=== PATIENT | female | born 1975 | race Asian ===

== ENCOUNTER 2020-12-07 16:32 | Inpatient (IN) | payer BC, SELFPAY ==
[~2020-12-07] VITALS: Ht 170 cm; Wt 76.7 kg
[2020-12-07] MEDS: LR 1,000 ML IV SCH ×2 (16:20→17:22)
[2020-12-07] MEDS ORDERED: NALBUPHINE HCL 10 MG/ML AMP IVP PRN (17:00)
[2020-12-07] MEDS ORDERED: OXYTOCIN/0.9 % SODIUM CHLORIDE 1,000 ML IV SCH ×2 (17:00→17:30)
[2020-12-07] MEDS ORDERED: TERBUTALINE SULFATE 1 MG/ML VIAL SUBCUT ONE (17:00)
[2020-12-07] MEDS ORDERED: ANUSOL 1 EA SUPP.RECT (PREPARATION H) RC PRN (17:30)
[2020-12-07] MEDS ORDERED: OXYTOCIN/0.9 % SODIUM CHLORIDE 1,000 ML IV ONE (17:30)
[2020-12-07] MEDS ORDERED: HYDROcodone/ACETAMIN 5-325 MG TAB (NORCO/ VICODIN) PO PRN (17:30)
[2020-12-07] MEDS ORDERED: NALOXONE HCL 0.4 MG/ML AMP (NARCAN) IVP PRN (17:30)
[2020-12-07] MEDS ORDERED: DIPH-TET-PERTUS Vaccine 0.5 ML VIAL (ADACEL) I.M. PRN (17:30)
[2020-12-07] MEDS ORDERED: RHO(D) IMMUNE GLOBULIN/MALTOSE 1500 UNITS/1.3 ML (WINHRO) IM PRN (17:30)
[2020-12-07] MEDS ORDERED: MEASLES,MUMPS&RUBELLA VACC/PF 12500 UNIT/0.5 ML VIAL SUBQ PRN (17:30)
[2020-12-07] MEDS ORDERED: METHYLERGONOVINE MALEATE 0.2 MG TABLET PO PRN (17:30)
[2020-12-07] MEDS ORDERED: DERMOPLAST SPRAY TP PRN (17:30)
[2020-12-07] MEDS ORDERED: OXYCODONE/ACETAMINOPHEN 5-325 TABLET PO PRN ×2 (17:30)
[2020-12-07] MEDS ORDERED: HYDROCORTISONE 0.5% CREAM 28.4 GM CREAM.GM. TP PRN (17:30)
[2020-12-07] MEDS ORDERED: LANOLIN 7 GM OINT. TP PRN (17:30)
[2020-12-07] MEDS ORDERED: WITCH HAZEL LEAF 1 MED.PAD MED.PAD TP PRN (17:30)
[2020-12-07 18:00] VITALS: BP_SYST 109
[2020-12-07 18:23] LABS: BASOPHILS % (AUTO) 0.4 % (0.0-2.0); EOSINOPHILS % (AUTO) 0.4 % (0.0-4.0); HEMATOCRIT 32.4 % (36-48); HEMOGLOBIN 11.3 g/dL (12.0-16.0); LYMPHOCYTES # (AUTO) 1.1 K/uL (1.0-5.5); LYMPHOCYTES % (AUTO) 17.7 % (20.5-51.5); MEAN CORPUSCULAR HEMOGLOBIN 33 pg (27-31); MEAN CORPUSCULAR HGB CONC 35 % (32-36); MEAN CORPUSCULAR VOLUME 93 fL (79.0-98.0); MONOCYTES # (AUTO) 0.4 K/uL (0.0-1.0); MONOCYTES % (AUTO) 6.3 % (1.7-9.3); NEUTROPHILS # (AUTO) 4.8 K/uL (1.8-7.7); NEUTROPHILS % (AUTO) 75.2 % (40.0-70.0); PLATELET COUNT (AUTO) 158 K/uL (130-430); RED BLOOD CELL COUNT(AUTO) 3.47 MIL/uL (4.2-6.2); RED CELL DISTRIBUTION WIDTH 13.8 % (9.0-15.0); WHITE BLOOD COUNT (AUTO) 6.4 K/uL (4.8-10.8)
[2020-12-07] MEDS: SENNOSIDES/DOCUSATE SODIUM 1 TAB TABLET(SENOKOT-S) PO SCH (21:00)
[2020-12-07] MEDS: IBUPROFEN 600 MG TABLET PO SCH (21:00)
[2020-12-07] MEDS ORDERED: TEMAZEPAM 15 MG CAPSULE PO PRN (21:00)
[2020-12-08 08:48] LABS: BASOPHILS % (AUTO) 0.4 % (0.0-2.0); EOSINOPHILS % (AUTO) 0.3 % (0.0-4.0); HEMATOCRIT 31.6 % (36-48); LYMPHOCYTES # (AUTO) 1.1 K/uL (1.0-5.5); LYMPHOCYTES % (AUTO) 10.7 % (20.5-51.5); MEAN CORPUSCULAR HEMOGLOBIN 33 pg (27-31); MEAN CORPUSCULAR HGB CONC 35 % (32-36); MEAN CORPUSCULAR VOLUME 94 fL (79.0-98.0); MONOCYTES # (AUTO) 0.4 K/uL (0.0-1.0); MONOCYTES % (AUTO) 4.4 % (1.7-9.3); NEUTROPHILS # (AUTO) 8.3 K/uL (1.8-7.7); NEUTROPHILS % (AUTO) 84.2 % (40.0-70.0); PLATELET COUNT (AUTO) 135 K/uL (130-430); RED BLOOD CELL COUNT(AUTO) 3.38 MIL/uL (4.2-6.2); RED CELL DISTRIBUTION WIDTH 13.5 % (9.0-15.0); WHITE BLOOD COUNT (AUTO) 9.9 K/uL (4.8-10.8)
[2020-12-08] MEDS: DOCUSATE SODIUM 100 MG CAPSULE PO SCH (09:00)
[2020-12-08] MEDS: IBUPROFEN 600 MG TABLET PO SCH ×3 (12:00→18:19)
[2020-12-08] MEDS: SENNOSIDES/DOCUSATE SODIUM 1 TAB TABLET(SENOKOT-S) PO SCH (21:00)
[2020-12-09] MEDS: DOCUSATE SODIUM 100 MG CAPSULE PO SCH (06:53)
[2020-12-09] MEDS: SENNOSIDES/DOCUSATE SODIUM 1 TAB TABLET(SENOKOT-S) PO SCH (06:54)
[2020-12-09] MEDS: IBUPROFEN 600 MG TABLET PO SCH ×2 (12:18)
[2020-12-09] MEDS ORDERED: LIDOCAINE PF 1% 30ML(POUR BTL) INJ ONE (14:41)
[2020-12-12 18:06] LABS: FTA-Ab (T PALLIDUM) Non Reactive (Non Reactive)
== END 2020-12-09 14:55 | disposition home or self-care (01) | DRG 807 ==
LOC: OBSVTOIN 16:32 → SPU 16:32
PROVIDERS: ADMIT Specialist; ATTEND Specialist
PROC: 10E0XZZ Delivery of Products of Conception, External Approach (ICD-10-PCS; principal; 2020-12-07)
PROC: 0KQM0ZZ Repair Perineum Muscle, Open Approach (ICD-10-PCS; 2020-12-07)
DX: O70.1 Second degree perineal laceration during delivery (principal); Z37.0 Single live birth; Z3A.38 38 weeks gestation of pregnancy; Z20.822 Contact with and (suspected) exposure to COVID-19
CPT/HCPCS: 36415; 81002; 85025; 86592; 86780; 86886; 86900; 86901; J2001; J2590

== ENCOUNTER 2022-03-28 03:53 | Inpatient (IN) | payer BC ==
[~2022-03-28] VITALS: Ht 167.6 cm; Wt 74.4 kg
[2022-03-28] MEDS ORDERED: LR 1,000 ML IV ONE (08:00)
[2022-03-28] MEDS ORDERED: OXYTOCIN/0.9 % SODIUM CHLORIDE 1,000 ML IV SCH (08:00)
[2022-03-28] MEDS ORDERED: LR 1,000 ML IV SCH (08:00)
[2022-03-28] MEDS ORDERED: NALBUPHINE HCL 10 MG/ML AMP IVP PRN (08:00)
[2022-03-28 08:34] LABS: BASOPHILS % (AUTO) 0.4 % (0.0-2.0); EOSINOPHILS % (AUTO) 0.5 % (0.0-4.0); HEMATOCRIT 34.7 % (36-48); HEMOGLOBIN 11.9 g/dL (12.0-16.0); LYMPHOCYTES % (AUTO) 20.5 % (20.5-51.5); MEAN CORPUSCULAR HEMOGLOBIN 33 pg (27-31); MEAN CORPUSCULAR HGB CONC 34 % (32-36); MEAN CORPUSCULAR VOLUME 96 fL (79.0-98.0); MONOCYTES # (AUTO) 0.3 K/uL (0.0-1.0); MONOCYTES % (AUTO) 5.5 % (1.7-9.3); NEUTROPHILS # (AUTO) 3.7 K/uL (1.8-7.7); NEUTROPHILS % (AUTO) 73.1 % (40.0-70.0); PLATELET COUNT (AUTO) 145 K/uL (130-430); RED CELL DISTRIBUTION WIDTH 13.5 % (9.0-15.0); WHITE BLOOD COUNT (AUTO) 5.1 K/uL (4.8-10.8)
[2022-03-28 12:18] VITALS: BP_SYST 161
[2022-03-28] MEDS ORDERED: NALOXONE HCL 0.4 MG/ML AMP (NARCAN) ONE (14:43)
[2022-03-28] MEDS ORDERED: LIGHT MINERAL OIL 10 ML VIAL MC ONE (14:43)
[2022-03-28] MEDS ORDERED: HYDROcodone/ACETAMIN 5-325 MG TAB (NORCO/ VICODIN) PO PRN (17:45)
[2022-03-28] MEDS ORDERED: LANOLIN 7 GM OINT. TP PRN (17:45)
[2022-03-28] MEDS ORDERED: OXYTOCIN/0.9 % SODIUM CHLORIDE 1,000 ML IV ONE (17:45)
[2022-03-28] MEDS ORDERED: NALOXONE HCL 0.4 MG/ML AMP (NARCAN) IVP PRN (17:45)
[2022-03-28] MEDS ORDERED: OXYCODONE/ACETAMINOPHEN 5-325 TABLET PO PRN (17:45)
[2022-03-28] MEDS ORDERED: METHYLERGONOVINE MALEATE 0.2 MG TABLET PO PRN (17:45)
[2022-03-28] MEDS ORDERED: DERMOPLAST SPRAY TP PRN (17:45)
[2022-03-28] MEDS ORDERED: WITCH HAZEL LEAF 1 MED.PAD MED.PAD TP PRN (17:45)
[2022-03-28] MEDS: OXYCODONE/ACETAMINOPHEN 5-325 TABLET PO PRN (18:36)
[2022-03-28] MEDS: SENNOSIDES/DOCUSATE SODIUM 1 TAB TABLET(SENOKOT-S) PO SCH (22:33)
[2022-03-29] MEDS: IBUPROFEN 600 MG TABLET PO SCH ×4 (00:01→23:44)
[2022-03-29 08:02] LABS: BASOPHILS % (AUTO) 0.4 % (0.0-2.0); EOSINOPHILS % (AUTO) 0.4 % (0.0-4.0); HEMATOCRIT 33.7 % (36-48); HEMOGLOBIN 11.8 g/dL (12.0-16.0); LYMPHOCYTES # (AUTO) 1.3 K/uL (1.0-5.5); LYMPHOCYTES % (AUTO) 16.9 % (20.5-51.5); MEAN CORPUSCULAR HEMOGLOBIN 33 pg (27-31); MEAN CORPUSCULAR HGB CONC 35 % (32-36); MEAN CORPUSCULAR VOLUME 95 fL (79.0-98.0); MONOCYTES # (AUTO) 0.4 K/uL (0.0-1.0); MONOCYTES % (AUTO) 5.1 % (1.7-9.3); NEUTROPHILS # (AUTO) 6.1 K/uL (1.8-7.7); NEUTROPHILS % (AUTO) 77.2 % (40.0-70.0); PLATELET COUNT (AUTO) 131 K/uL (130-430); RED BLOOD CELL COUNT(AUTO) 3.55 MIL/uL (4.2-6.2); RED CELL DISTRIBUTION WIDTH 13.3 % (9.0-15.0)
[2022-03-29] MEDS: DOCUSATE SODIUM 100 MG CAPSULE PO SCH (09:27)
[2022-03-29] MEDS: SENNOSIDES/DOCUSATE SODIUM 1 TAB TABLET(SENOKOT-S) PO SCH (21:24)
[2022-03-29] MEDS: OXYCODONE/ACETAMINOPHEN 5-325 TABLET PO PRN (23:16)
[2022-03-30] MEDS: IBUPROFEN 600 MG TABLET PO SCH ×4 (06:00→23:27)
[2022-03-30] MEDS: DOCUSATE SODIUM 100 MG CAPSULE PO SCH (12:25)
[2022-03-30] MEDS: SENNOSIDES/DOCUSATE SODIUM 1 TAB TABLET(SENOKOT-S) PO SCH (20:08)
[2022-03-30] MEDS ORDERED: HYDROCORTISONE 0.5% CREAM 28.4 GM CREAM.GM. TP PRN (21:30)
== END 2022-03-30 23:37 | disposition home or self-care (01) | DRG 807 ==
LOC: SPU 06:44
PROVIDERS: ADMIT Specialist; ATTEND Specialist
PROC: 10E0XZZ Delivery of Products of Conception, External Approach (ICD-10-PCS; principal; 2022-03-28)
PROC: 0HQ9XZZ Repair Perineum Skin, External Approach (ICD-10-PCS; 2022-03-28)
PROC: 3E033VJ Introduction of Other Hormone into Peripheral Vein, Percutaneous Approach (ICD-10-PCS; 2022-03-28)
DX: O70.0 First degree perineal laceration during delivery (principal); Z37.0 Single live birth; Z20.822 Contact with and (suspected) exposure to COVID-19; Z3A.38 38 weeks gestation of pregnancy
CPT/HCPCS: 36415; 81002; 85018; 85025; 86592; 86886; 86900; 86901; J2310; J2590